=== PATIENT | male | born 1970 | race Caucasian/White ===

== ENCOUNTER 2018-07-31 00:22 | Emergency (ER) | payer SELFPAY ==
[~2018-07-31] VITALS: Ht 182.9 cm; Wt 90.7 kg
[2018-07-31] MEDS ORDERED: NKM (00:32)
[2018-07-31 00:35] VITALS: BP 115/75
--- NOTE | 2018-07-31 00:35 | NUR ---
ED Nurse Note: Pt with patches of Psoriasis here with [employer] for clearance.. pt denies pain. pt is handcuffs.
[2018-07-31] MEDS ORDERED: DOXYCYCLINE MO100 MG ORAL (00:44)
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
[2018-07-31 00:45] VITALS: BP 115/75
--- NOTE | 2018-07-31 00:45 | NUR ---
ER DISCHARGE NOTE: Patient is cleared to be discharged per ERMD, pt is aox4, on room air, with stable vital signs. pt was given dc and prescription instructions, pt was able to verbalize understanding, pt id band removed without complications. pt is able to ambulate with steady gait. pt took all belongings.
== END 2018-07-31 00:45 ==
LOC: EMR 00:40
DX: L03.115 Cellulitis of right lower limb (principal); S80.921A Unspecified superficial injury of right lower leg, initial encounter; F17.200 Nicotine dependence, unspecified, uncomplicated; V43.52XA Car driver injured in collision with other type car in traffic accident, initial encounter; Y92.410 Unspecified street and highway as the place of occurrence of the external cause
CPT/HCPCS: 99282